=== PATIENT | male | born 1955 | race Caucasian/White ===

== ENCOUNTER 2020-04-24 07:51 | Inpatient (IN) ==
[~2020-04-24 07:51] MED LIST: *HR* Propofol 200 MG/20 ML VIAL IVP ONE; Lidocaine -MPF 2% 2 ML VIAL ONE
[2020-04-24] MEDS: 0.9 % Sodium Chloride 1,000 ML IVC SCH (08:19)
[2020-04-24] MEDS ORDERED: *HR* Propofol 200 MG/20 ML VIAL IVP ONE ×2 (08:50→09:11)
[2020-04-24] MEDS ORDERED: *HR* Midazolam HCl 2 MG/2 ML VIAL ONE ×3 (09:32→09:47)
[2020-04-24] MEDS: Dexmedetomidine HCl 400 MCG/100 ML MLS IVC SCH ×2 (10:25→17:12)
[2020-04-24] MEDS ORDERED: Dexmedetomidine HCl 400 MCG/100 ML MLS IVC ONE (10:26)
[2020-04-24] MEDS ORDERED: DilTIAZem 50 MG/50 ML IV.SOLN IVC SCH (10:30)
[2020-04-24] MEDS ORDERED: Naloxone 0.4 MG/ML INJ IVP PRN (11:02)
[2020-04-24] MEDS ORDERED: Artificial Tears SOLN 15 ML BOTTLE BOTH EYES PRN (11:02)
[2020-04-24] MEDS ORDERED: Pantoprazole 40 MG VIAL IVP SCH (11:15)
[2020-04-24 11:21] LABS: Immature Granulocytes % 1.1 % (0-4); Mean Platelet Volume 9.8 fL (9.4-12.4); Red Cell Distribution Width 12.3 % (11.5-14.5)
[2020-04-24 11:23] LABS: Basophils % 0.3 %; Eosinophils # 0.1 K/mcL (0.0-0.6); Eosinophils % 1.1 %; Hemoglobin 13.1 g/dL (12.9-16.9); INR 1.1; Immature Platelets 3.8 % (1.1-6.1); Lymphocytes # 0.8 K/mcL (0.6-4.6); Lymphocytes % 8.2 %; Mean Corpuscular HGB Conc 32.8 g/dL (31.6-35.5); Mean Corpuscular Hemoglobin 28.4 pg (28.0-33.3); Mean Corpuscular Volume 86.8 fL (83.0-100.0); Monocytes # 0.7 K/mcL (0.0-1.3); Monocytes % 7.8 %; Neutrophils # 7.6 K/mcL (1.6-8.9); Nucleated Red Blood Cells 0.2 /100 WBC (0); Platelet Count 114 K/mcL (140-400); Prothrombin Time 12.5 Seconds (9.4-12.1); Red Blood Count 4.61 M/mcL (4.19-5.50); Segmented Neutrophils % 81.5 %; White Blood Count 9.3 K/mcL (4.3-11.1)
[2020-04-24 11:26] LABS: Activated Partial Thrombo Time 29.6 Seconds (26.0-36.0)
[2020-04-24] MEDS ORDERED: Amiodarone Premix 360 MG/200 ML BAG IVC ONE (11:27)
[2020-04-24] MEDS ORDERED: 0.9 % Sodium Chloride 1,000 ML IV ONE (11:28)
[2020-04-24] MEDS: FentaNYL (PF) 1,000 MCG/100 ML IV.SOLN IVC SCH ×2 (11:30→17:17)
[2020-04-24 11:37] LABS: Alanine Aminotransferase 57 Units/L (7-52); Albumin 3.5 g/dL (3.5-5.7); Albumin/Globulin Ratio 1.3 (1.1-2.2); Alkaline Phosphatase 81 Units/L (34-104); Aspartate Amino Transferase 45 Units/L (13-39); BUN/Creatinine Ratio 17 (6-26); Bilirubin,Total 0.7 mg/dL (0.3-1.0); Blood Urea Nitrogen 15 mg/dL (8-23); Calcium 8.5 mg/dL (8.6-10.3); Carbon Dioxide 23 mEq/L (23-29); Chloride 102 mEq/L (98-107); Globulin 2.8 g/dL (2.4-3.5); Glucose 188 mg/dL (70-105); Osmolality,Calculated 288 (280-300); Potassium 3.2 mEq/L (3.5-5.1); Sodium 136 mEq/L (136-145); Total Protein 6.3 g/dL (6.4-8.9); eGFR For African Americans > 60 (> 60); eGFR For Non-African Americans > 60 (> 60)
[2020-04-24 12:09] LABS: Adenovirus Not Detected (Not Detect); Bordetella Pertussis Not Detected (Not Detect); Chlamydophila pneumoniae Not Detected (Not Detect); Coronavirus 229E Not Detected (Not Detect); Coronavirus HKU1 Not Detected (Not Detect); Coronavirus NL63 Not Detected (Not Detect); Coronavirus OC43 Not Detected (Not Detect); Human Metapneumovirus Not Detected (Not Detect); Human Rhinovirus/Enterovirus Not Detected (Not Detect); Influenza A Subtype 2009 H1 Not Detected (Not Detect); Influenza B Not Detected (Not Detect); Mycoplasma pneumoniae Not Detected (Not Detect); Parainfluenza Virus 1 Not Detected (Not Detect); Parainfluenza Virus 2 Not Detected (Not Detect); Parainfluenza Virus 3 Not Detected (Not Detect); Parainfluenza Virus 4 Not Detected (Not Detect); Respiratory Syncytial Virus Not Detected (Not Detect)
[2020-04-24] MEDS: Pantoprazole 40 MG VIAL IVP SCH (12:34)
[2020-04-24] MEDS: Norepinephrine 4 MG/254 ML IV.SOLN IVC SCH ×2 (12:34→18:51)
[2020-04-24] MEDS: Artificial Tears SOLN 15 ML BOTTLE BOTH EYES SCH ×3 (12:35→20:06)
[2020-04-24 13:54] LABS: ABG Base Excess -1 mEq/L (-2 to 3); ABG HCO3 23 mEq/L (21-27); ABG Oxygen Saturation 95 % (95-98); ABG PCO2 38 mmHg (35-45); ABG PO2 75 mmHg (85-104); ABG TCO2 24 mEq/L (20-26); Blood Gas Modality AF; Blood Gas VT 500 cc
[2020-04-24] MEDS ORDERED: Potassium Phosphate 44 MEQ in 0.9 % Sodium Chloride 250 ML IVPB PRN (13:58)
[2020-04-24] MEDS ORDERED: Calcium Gluconate 1gm/50mL 1 GM/50 ML BAG IVPB PRN (13:58)
[2020-04-24] MEDS: Piperacillin/Tazobactam 3.375 GM in 0.9 % Sodium Chloride Mini Bag 100 ML IVPB SCH (15:04)
[2020-04-24] MEDS: Amiodarone Premix 360 MG/200 ML BAG IVC SCH (17:19)
[2020-04-24 17:56] LABS: Basophils % 0.2 %; Eosinophils # 0.1 K/mcL (0.0-0.6); Eosinophils % 0.6 %; Hematocrit 35.7 % (37.5-50.1); Hemoglobin 11.9 g/dL (12.9-16.9); Immature Granulocytes % 1.1 % (0-4); Lymphocytes # 0.8 K/mcL (0.6-4.6); Lymphocytes % 6.9 %; Mean Corpuscular HGB Conc 33.3 g/dL (31.6-35.5); Mean Corpuscular Hemoglobin 29.3 pg (28.0-33.3); Mean Corpuscular Volume 87.9 fL (83.0-100.0); Mean Platelet Volume 9.5 fL (9.4-12.4); Monocytes # 0.8 K/mcL (0.0-1.3); Monocytes % 7.1 %; Neutrophils # 9.3 K/mcL (1.6-8.9); Platelet Count 127 K/mcL (140-400); Red Blood Count 4.06 M/mcL (4.19-5.50); Red Cell Distribution Width 12.3 % (11.5-14.5); Segmented Neutrophils % 84.1 %; White Blood Count 11.1 K/mcL (4.3-11.1)
[2020-04-24] MEDS ORDERED: Perflutren Lipid Microsphere 1.3 ML in 0.9 % Sodium Chloride 8.7 ML IVP PRN (18:10)
[2020-04-24 18:39] LABS: BUN/Creatinine Ratio 18 (6-26); Blood Urea Nitrogen 16 mg/dL (8-23); Calcium 8.5 mg/dL (8.6-10.3); Carbon Dioxide 25 mEq/L (23-29); Chloride 104 mEq/L (98-107); Glucose 163 mg/dL (70-105); Osmolality,Calculated 283 (280-300); Potassium 4.2 mEq/L (3.5-5.1); Sodium 134 mEq/L (136-145); eGFR For African Americans > 60 (> 60); eGFR For Non-African Americans > 60 (> 60)
[2020-04-24] MEDS: Chlorhexidine Rinse 15 ML MOUTHWASH MM SCH (20:05)
[2020-04-24] MEDS: Midazolam HCl 50 MG/100 ML IV.SOLN IVC SCH (20:44)
[2020-04-25] MEDS: Artificial Tears SOLN 15 ML BOTTLE BOTH EYES SCH ×3 (00:02→07:59)
[2020-04-25] MEDS: Piperacillin/Tazobactam 3.375 GM in 0.9 % Sodium Chloride Mini Bag 100 ML IVPB SCH ×2 (00:02→08:15)
[2020-04-25] MEDS: FentaNYL (PF) 1,000 MCG/100 ML IV.SOLN IVC SCH (01:40)
[2020-04-25 03:50] LABS: Basophils % 0.2 %; Eosinophils # 0.1 K/mcL (0.0-0.6); Eosinophils % 1.9 %; Hematocrit 33.8 % (37.5-50.1); Hemoglobin 11.4 g/dL (12.9-16.9); Immature Granulocytes % 0.8 % (0-4); Lymphocytes # 0.7 K/mcL (0.6-4.6); Lymphocytes % 11.5 %; Mean Corpuscular HGB Conc 33.7 g/dL (31.6-35.5); Mean Corpuscular Hemoglobin 29.6 pg (28.0-33.3); Mean Corpuscular Volume 87.8 fL (83.0-100.0); Mean Platelet Volume 9.5 fL (9.4-12.4); Monocytes # 0.5 K/mcL (0.0-1.3); Monocytes % 7.9 %; Neutrophils # 4.6 K/mcL (1.6-8.9); Platelet Count 110 K/mcL (140-400); Red Blood Count 3.85 M/mcL (4.19-5.50); Red Cell Distribution Width 12.7 % (11.5-14.5); Segmented Neutrophils % 77.7 %; White Blood Count 5.9 K/mcL (4.3-11.1)
[2020-04-25 03:56] LABS: ABG Ionized Calcium 1.15 mmol/L (1.15-1.35)
[2020-04-25 04:10] LABS: BUN/Creatinine Ratio 14 (6-26); Blood Urea Nitrogen 13 mg/dL (8-23); Calcium 8.2 mg/dL (8.6-10.3); Carbon Dioxide 23 mEq/L (23-29); Chloride 106 mEq/L (98-107); Glucose 132 mg/dL (70-105); Magnesium 2.1 mg/dL (1.6-2.6); Osmolality,Calculated 284 (280-300); Phosphorous 3.6 mg/dL (2.7-4.5); Potassium 3.8 mEq/L (3.5-5.1); Sodium 136 mEq/L (136-145); eGFR For African Americans > 60 (> 60); eGFR For Non-African Americans > 60 (> 60)
[2020-04-25 04:33] LABS: ABG Base Excess -7 mEq/L (-2 to 3); ABG HCO3 17 mEq/L (21-27); ABG Oxygen Saturation 96 % (95-98); ABG PCO2 28 mmHg (35-45); ABG PH 7.41 pH Units (7.32-7.45); ABG PO2 79 mmHg (85-104); ABG TCO2 18 mEq/L (20-26); Blood Gas Modality ASSIST CONTROL; Blood Gas VT 500 cc
[2020-04-25] MEDS: Amiodarone Premix 360 MG/200 ML BAG IVC SCH (05:25)
[2020-04-25] MEDS: 0.9 % Sodium Chloride 1,000 ML IVC SCH (05:50)
[2020-04-25] MEDS: *HR* Enoxaparin 40 MG/0.4 ML SYRINGE SQ SCH (05:52)
[2020-04-25] MEDS: Pantoprazole 40 MG VIAL IVP SCH (08:16)
[2020-04-25] MEDS: Chlorhexidine Rinse 15 ML MOUTHWASH MM SCH (08:16)
[2020-04-25] MEDS: Midazolam HCl 50 MG/100 ML IV.SOLN IVC SCH (08:17)
[2020-04-25 12:25] LABS: Bilirubin,Urine Negative (Negative); Blood,Urine Negative (Negative); Clarity,Urine Clear (Clear); Color,Urine Light-Yellow (Yellow); Glucose,Urine (UA) Normal (Normal); Ketones,Urine Negative (Negative); Leukocyte Esterase,Urine Negative (Negative); Nitrite,Urine Negative (Negative); Protein,Urine Negative (Neg-Trace); Specific Gravity,Urine 1.009 (1.010-1.025); Urobilinogen,Urine Normal (Normal)
[2020-04-25 15:13] LABS: BUN/Creatinine Ratio 12 (6-26); Blood Urea Nitrogen 11 mg/dL (8-23); Calcium 8.7 mg/dL (8.6-10.3); Carbon Dioxide 24 mEq/L (23-29); Chloride 104 mEq/L (98-107); Glucose 171 mg/dL (70-105); Magnesium 2.1 mg/dL (1.6-2.6); Osmolality,Calculated 283 (280-300); Phosphorous 2.5 mg/dL (2.7-4.5); Potassium 3.7 mEq/L (3.5-5.1); Sodium 135 mEq/L (136-145); eGFR For African Americans > 60 (> 60); eGFR For Non-African Americans > 60 (> 60)
[2020-04-25] MEDS ORDERED: Amiodarone Premix 360 MG/200 ML BAG IVC ONE (18:06)
[2020-04-26] MEDS ORDERED: Amiodarone Premix 360 MG/200 ML BAG IVC SCH
[2020-04-26 05:15] LABS: VBG Ionized Calcium 1.19 mmol/L (1.15-1.35)
[2020-04-26 05:21] LABS: Mean Corpuscular HGB Conc 33.2 g/dL (31.6-35.5); Mean Corpuscular Hemoglobin 29.4 pg (28.0-33.3); Red Cell Distribution Width 12.7 % (11.5-14.5)
[2020-04-26 05:23] LABS: Basophils % 0.2 %; Eosinophils # 0.1 K/mcL (0.0-0.6); Eosinophils % 1.8 %; Hematocrit 35.5 % (37.5-50.1); Hemoglobin 11.8 g/dL (12.9-16.9); Immature Platelets 3.1 % (1.1-6.1); Lymphocytes # 0.5 K/mcL (0.6-4.6); Lymphocytes % 7.5 %; Mean Corpuscular Volume 88.3 fL (83.0-100.0); Mean Platelet Volume 10.1 fL (9.4-12.4); Monocytes # 0.5 K/mcL (0.0-1.3); Monocytes % 7.8 %; Neutrophils # 4.9 K/mcL (1.6-8.9); Platelet Count 139 K/mcL (140-400); Red Blood Count 4.02 M/mcL (4.19-5.50); Segmented Neutrophils % 81.7 %
[2020-04-26 05:35] LABS: BUN/Creatinine Ratio 11 (6-26); Blood Urea Nitrogen 9 mg/dL (8-23); Calcium 8.9 mg/dL (8.6-10.3); Carbon Dioxide 22 mEq/L (23-29); Chloride 104 mEq/L (98-107); Glucose 134 mg/dL (70-105); Magnesium 2.1 mg/dL (1.6-2.6); Osmolality,Calculated 283 (280-300); Potassium 3.7 mEq/L (3.5-5.1); Sodium 136 mEq/L (136-145); eGFR For African Americans > 60 (> 60); eGFR For Non-African Americans > 60 (> 60)
[2020-04-26] MEDS: *HR* Enoxaparin 40 MG/0.4 ML SYRINGE SQ SCH (06:09)
[2020-04-26] MEDS ORDERED: amLODIPine 5 MG TABLET PO SCH (09:00)
[2020-04-26 12:22] VITALS: BP 151/102
[2020-04-27] MEDS ORDERED: *HR* Amiodarone 200 MG TABLET PO SCH (09:00)
== END 2020-04-26 13:00 | disposition home or self-care (01) | DRG 208 ==
LOC: ENDPAV 07:51 → ICNU 10:18
PROVIDERS: ADMIT Family Medicine; ATTEND Family Medicine